=== PATIENT | female | born 1950 | race Caucasian/White ===

== ENCOUNTER 2017-07-22 17:49 | Emergency (ER) | payer MEDICARE ==
[2017-07-22 19:06] VITALS: BP 145/87
--- NOTE | 2017-07-22 20:22 | ED ---
Throat Pain/Nasal Congestion - HPI Summary HPI Summary: 67 yr old female with the complaint of left lower eyelid redness, swelling. Some discomfort. Onset over the past 5-6 days. No change in vision. No eye pain. - History of Current Complaint Chief Complaint: UCEye Time Seen by Provider: 07/22/17 20:14 - Allergies/Home Medications Allergies/Adverse Reactions: Allergies Allergy/AdvReac Type Severity Reaction Status Date / Time amoxicillin Allergy Swelling Verified 07/22/17 19:06 Of Face,Lips,& Throat aspirin Allergy Difficulty Verified 07/22/17 19:06 Breathing/Wheezing Sulfa (Sulfonamide Allergy Swelling Verified 07/22/17 19:06 Antibiotics) Of Face,Lips,& Throat Home Medications: Home Medications Albuterol HFA INHALER* [Ventolin HFA Inhaler*] 2 puff INH Q4H PRN 07/22/17 [ History Confirmed 07/22/17] Baclofen TAB* [Lioresal TAB*] 10 mg PO BID 07/22/17 [History Confirmed 07/22/17] Brimonidine Tartrate 15 ml OP DAILY 07/22/17 [History Confirmed 07/22/17] Clobetasol Propionate/Emoll [Clobetasol Propionate] 0.05 % EX DAILY 07/22/17 [ History Confirmed 07/22/17] DULoxetine DR CAP* [Cymbalta CAP*] 90 mg PO ONCE 07/22/17 [History Confirmed ] Fluticasone HFA 110 mcg(NF) [Flovent HFA 110 mcg(NF)] 1 puff INH BID 07/22/17 [ History Confirmed 07/22/17] Fluticasone NASAL SPRAY 50MCG* [Flonase NASAL SPRAY 50MCG*] 1 spray BOTH NARES DAILY 07/22/17 [History Confirmed 07/22/17] Gabapentin CAP(*) [Neurontin 100 mg CAP(*)] 100 mg PO TID 07/22/17 [History Confirmed 07/22/17] Latanoprost 0.005%* [Xalatan 0.005%*] 1 drop BOTH EYES QPM 07/22/17 [History Confirmed 07/22/17] Loratadine [Claritin] 10 mg PO DAILY 07/22/17 [History Confirmed 07/22/17] Metoprolol Succinate XL TAB* [Toprol XL TAB*] 25 mg PO DAILY 07/22/17 [History Confirmed 07/22/17] Omeprazole CAP* [Prilosec CAP* 20 MG] 20 mg PO DAILY 07/22/17 [History Confirmed 07/22/17] Pramipexole TAB* [Mirapex TAB*] 0.125 mg PO BEDTIME 07/22/17 [History Confirmed 07/22/17] traMADol TAB* [Ultram*] 50 mg PO Q6HR PRN 07/22/17 [History Confirmed 07/22/17] PMH/Surg Hx/FS Hx/Imm Hx Respiratory History: Reports: Hx Asthma - Surgical History Surgery Procedure, Year, and Place: T & A. tubal. Hysterectomy. gall bladder. left eblow Infectious Disease History: No Infectious Disease History: Denies: Traveled Outside the [place] in Last 30 Days - Family History Known Family History: Positive: None - Social History Alcohol Use: None Substance Use Type: Reports: None Smoking Status (MU): Never Smoked Tobacco Review of Systems Constitutional: Negative Positive: Other - left lower eyelid swollen with some redness. All Other Systems Reviewed And Are Negative: Yes Physical Exam Triage Information Reviewed: Yes Vital Signs On Initial Exam: Initial Vitals Temp Pulse Resp BP Pulse Ox 98.4 F 84 16 145/87 98 07/22/17 18:56 07/22/17 18:56 07/22/17 18:56 07/22/17 18:56 07/22/17 18:56 Vital Signs Reviewed: Yes Appearance: Positive: Well-Appearing, No Pain Distress Skin: Positive: Warm, Skin Color Reflects Adequate Perfusion Head/Face: Positive: Normal Head/Face Inspection Eyes: Positive: EOMI, DE, Conjunctiva Inflammed - left eye with hordeolum present lower left lid. ENT: Positive: Normal ENT inspection Neck: Positive: Nontender Respiratory/Lung Sounds: Positive: Clear to Auscultation, Breath Sounds Present Cardiovascular: Positive: RRR. Negative: Murmur Abdomen Description: Positive: Nontender Musculoskeletal: Positive: Strength/ROM Intact Neurological: Positive: Sensory/Motor Intact, Alert, Oriented to Person Place, Time, Speech Normal Psychiatric: Positive: Normal - [place] Coma Scale Best Eye Response: 4 - Spontaneous Best Motor Response: 6 - Obeys Commands Best Verbal Response: 5 - Oriented Coma Scale Total: 15 Diagnostics - Vital Signs Vital Signs Temp Pulse Resp BP Pulse Ox 07/22/17 18:56 98.4 F 84 16 145/87 98 - Laboratory Lab Statement: Any lab studies that have been ordered have been reviewed, and results considered in the medical decision making process. EENT Course/Dx - Course Course Of Treatment: 67 yrold with hordeolum, rx with clindamycin and erythromycin eye ointment. - Diagnoses Provider Diagnoses: Hordeolum externum left lower eyelid, Cellulitis of left lower eyelid Discharge - Sign-Out/Discharge Documenting (check all that apply): Discharge/Admit/Transfer - Discharge Plan Condition: Good Disposition: HOME Prescriptions: Clindamycin Cap(NF) [Clindamycin Cap 300 mg Cap(NF)] 300 mg PO TID #30 cap Erythromycin OPTH OINT* [Erythromycin 0.5% OPTH OINT*] 1 applic LEFT EYE TID #1 tube Patient Education Materials: Stye (ED), Hypertension (ED) Referrals: Non Staff,Doctor [Primary Care Provider] - [facility] [Outside] - Billing Disposition and Condition Condition: GOOD Disposition: HOME
== END 2017-07-22 20:38 | disposition home or self-care (01) ==
LOC: UCCORT 17:49
DX: H00.015 Hordeolum externum left lower eyelid (principal); H00.035 Abscess of left lower eyelid; Z88.3 Allergy status to other anti-infective agents; Z88.6 Allergy status to analgesic agent; Z88.2 Allergy status to sulfonamides
CPT/HCPCS: 99202; G0463